=== PATIENT | male | born 1950 | race American Indian/Alaskan Native ===

== ENCOUNTER 2017-04-17 11:51 | Emergency (ER) | payer MEDICARE ==
--- NOTE | 2017-04-17 12:41 | XRay Report ---
RIGHT ANKLE, 3 views: History: Right ankle pain and swelling. There is diffuse soft tissue swelling. A comminuted fracture of the calcaneus is identified with extension to the subtalar joint. The remaining hindfoot is intact. Normal articulation of the tibiotalar joint. IMPRESSION: Comminuted calcaneus fracture.
[2017-04-17] MEDS ORDERED: PERCOCET 5/325 PO ONE (15:08)
--- NOTE | 2017-04-17 15:09 | Emergency Department Report ---
ED Lower Extremity HPI - General Chief Complaint: Extremity Injury, Lower Stated Complaint: RIGHT ANKLE PAIN Time Seen by Provider: 04/17/17 14:34 Source: patient, family Mode of arrival: Ambulatory Limitations: No Limitations - History of Present Illness Initial Comments: Patient here reports that he fell through the ceiling from his attic into his basement landed on his right foot and complained the right ankle and foot pain. He said he landed on his right foot that he fell to his left side. Denies any back or neck pain. Denies any injuries to his head. Denies any headache, blurred vision or dizziness. Patient states that his pain is 8 out of 10 only with bearing weight to his right foot. He also reports swelling to his right outer ankle. Patient did not take any medication for pain but says that he placed some ice to the site when it happened. He does have access to physician. Patient denies any loss of bowel or bladder function. Denies any pain to his buttocks. Denies any numbness or team went to extremities. Patient has history of COPD and hypertension. Surgical history of appendectomy and colon resection. Patient is allergic to aspirin. Reports pain as throbbing and achy in bed over at rest and worse with bearing. MD Complaint: ankle injury, foot injury, fall Onset/Timin -: days(s) Injury: Ankle: Right (pain and swelling), Foot: Right (Pain to rt heel) Type of Injury: other (fall) Place: home Severity: severe Severity scale (0 -10): 8 Improves With: cold therapy, immobilization, rest Worsens With: weight bearing, movement, palpation Context: fall Associated Symptoms: swelling, able to partially bear weight. denies: numbness , tingling, ambulatory Treatments Prior to Arrival: cold therapy - Related Data Previous Rx's Medication Instructions Recorded Last Taken Type Oxycodone HCl/Acetaminophen 1 each PO Q6HR PRN #15 tablet 04/17/17 Unknown Rx [Percocet 7.5/325 mg] Allergies Allergy/AdvReac Type Severity Reaction Status Date / Time aspirin AdvReac Bleeding Verified 04/17/17 12:04 ED Review of Systems ROS: Stated complaint: RIGHT ANKLE PAIN Other details as noted in HPI Comment: All other systems reviewed and negative Constitutional: no symptoms reported Respiratory: no symptoms reported Cardiovascular: denies: chest pain, palpitations, edema, syncope Gastrointestinal: denies: abdominal pain, nausea, vomiting, diarrhea Musculoskeletal: joint swelling, arthralgia. denies: back pain, myalgia Skin: denies: rash Neurological: abnormal gait (due to right ankle and foot pain and injury). denies: headache, weakness, numbness, paresthesias, confusion ED Past Medical Hx - Past Medical History Previous Medical History?: Yes Hx Hypertension: Yes Hx COPD: Yes - Surgical History Past Surgical History?: Yes Hx Appendectomy: Yes Additional Surgical History: colon resection, TA, hernia - Family History Family history: hypertension - Social History Smoking Status: Current Every Day Smoker Substance Use Type: None Other Social History: - Medications Home Medications: Home Medications Medication Instructions Recorded Confirmed Last Taken Type Oxycodone HCl/Acetaminophen 1 each PO Q6HR PRN #15 tablet 04/17/17 Unknown Rx [Percocet 7.5/325 mg] ED Physical Exam - General Limitations: No Limitations General appearance: alert, in no apparent distress - Head Head exam: Present: atraumatic, normocephalic, normal inspection - Expanded Head Exam Expanded Head exam: Absent: laceration, abrasion, contusion, hematoma, racoon eyes, soria's sign, general tenderness, tenderness of temporal artery, CSF rhinorrhea , CSF otorrhea - Eye Eye exam: Present: normal appearance, PERRL, EOMI. Absent: periorbital swelling , periorbital tenderness Pupils: Present: normal accommodation - ENT ENT exam: Present: normal exam, normal orophraynx, mucous membranes moist - Neck Neck exam: Present: normal inspection, full ROM. Absent: tenderness, meningismus, lymphadenopathy - Expanded Neck Exam Expanded Neck exam: Absent: tenderness, midline deformity, anterior neck swelling, tracheal deviation - Respiratory Respiratory exam: Present: normal lung sounds bilaterally. Absent: respiratory distress, wheezes, rales, rhonchi, stridor, chest wall tenderness - Cardiovascular Cardiovascular Exam: Present: regular rate, normal rhythm, normal heart sounds. Absent: systolic murmur, diastolic murmur - GI/Abdominal GI/Abdominal exam: Present: soft, normal bowel sounds. Absent: distended, tenderness, guarding, rebound, rigid, organomegaly, mass, bruit, pulsatile mass , hernia - Extremities Exam Extremities exam: Present: full ROM, tenderness, normal capillary refill, joint swelling, other (bilateral lower extremity with good pulses at 2+ and bounding. Good color, sensation, temperature. Left lower extremity exam is normal.). Absent: normal inspection, pedal edema, calf tenderness - Expanded Lower Extremity Exam Right Hip exam: Present: normal inspection, full ROM, pelvic stability. Absent: tenderness, swelling, abrasion, laceration, ecchymosis, deformity, crepidus, dislocation, erythema, external rotation, internal rotation, shortening Upper Leg exam: Present: normal inspection, full ROM. Absent: tenderness, swelling, abrasion, laceration, ecchymosis, deformity, crepidus, dislocation, erythema Knee exam: Present: normal inspection, full ROM, full knee extension. Absent: tenderness, swelling, abrasion, laceration, ecchymosis, deformity, crepidus, dislocation, erythema, effusion, pain w/ pronation/supination, posterior draw sign, pain/laxity with valgus, pain/laxity with varus Lower Leg exam: Present: normal inspection, full ROM. Absent: tenderness, swelling, abrasion, laceration, ecchymosis, deformity, crepidus, dislocation, erythema, palpable cord, Jane's sign Ankle exam: Present: normal inspection, full ROM, swelling (right outer ankle). Absent: tenderness, abrasion, laceration, ecchymosis, deformity, crepidus, dislocation, erythema Foot/Toe exam: Present: full ROM (patient with full active range of motion but he has pain with movement of his right foot.), tenderness (right calcaneal), swelling (right calcaneal), calcaneal tenderness. Absent: normal inspection, abrasion, laceration, ecchymosis, deformity, crepidus, dislocation, erythema, amputation, puncture wound, foreign body, tenderness at base of 5th metatarsal, nail avulsion, subungual hematoma Neuro vascular tendon exam: Present: no vascular compromise, motor deficit ( patient with active range of motion but motor deficits her right foot due to fracture), sensory deficit. Absent: pulse deficit, abnormal cap refill, tendon deficit, extremity cold to touch, pallor, abnormal 2-point discrimination, decreased fine/light touch, foot drop, peroneal nerve deficit, significant pain with passive ROM of distal joint Gait: Positive: antalgic - Back Exam Back exam: Present: normal inspection, full ROM. Absent: tenderness, CVA tenderness (R), CVA tenderness (L), muscle spasm, paraspinal tenderness, vertebral tenderness, rash noted - Expanded Back Exam Expanded Back exam: Absent: saddle anesthesia Back exam: Negative Straight Leg Raising: Left, Right - Neurological Exam Neurological exam: Present: alert, oriented X3, normal gait, reflexes normal, other (no focal neurological deficit). Absent: motor sensory deficit - Psychiatric Psychiatric exam: Present: normal affect, normal mood - Skin Skin exam: Present: warm, dry, intact, normal color. Absent: rash ED Course Vital Signs 04/17/17 11:59 Temperature 98.5 F Pulse Rate 70 Respiratory 16 Rate Blood Pressure 94/60 O2 Sat by Pulse 100 Oximetry Vital Signs 04/17/17 04/17/17 11:59 15:55 Temperature 98.5 F Pulse Rate 70 60 Respiratory 16 18 Rate Blood Pressure 94/60 Blood Pressure 105/71 [Right] O2 Sat by Pulse 100 Oximetry - Reevaluation(s) Reevaluation #1: 04/17/17 15:16 Patient given Percocet 5/325 mg 2 tablets in the emergency room. Patient with right comminuted calcaneal fracture. I spoke with Dr. Carey who is orthopedic doctor and he wants patient to have bulky foot compression dressing and walker and to follow RICE protocol 04/17/17 16:11 Status post [place] foot bulky dressing patient with good color, sensation, movement and temperature 2 toes of right foot. Patient voiced relief of pain 04/17/17 16:11 - Orthopedic Splinting/Casting Injury #1 Side: right Lower Extremity Injury Location: foot Lower Extremity Immobilizer: [place] dressing (Bulky foot compression dressing) Other Orthopedic Equipment: walker Additional Comments: Patient with comminuted right calcaneal fracture. I spoke with Dr. Carey who is orthopedic doctor and he wants patient to have bulky foot dressing and to follow up in his office tomorrow. Patient with good color, movement, temperature and sensation to toes of right foot status post [place] dressing. Patient able to demonstrate use of walker with no weightbearing to right lower extremity and foot. He tolerated procedure well. ED Lower Extremity MDM - Radiology Data Radiology results: report reviewed X-ray of right ankle 3 views revealed comminuted calcaneal fracture. There is diffuse soft tissue swelling. Fracture has extended to the soft collar joint. The remainder and hindfoot is intact. Normal articulation of the tibiotalar joint. - Medical Decision Making ED course: Patient status post fall with comminuted calcaneal fracture. Physical findings for swelling to the right ankle and tenderness to palpate right calcaneal. Walls test is negative without any Achilles tendon injury. Patient was given Percocet 5/325 mg by mouth in emergency room for pain relieved this pain. Bulky [place] dressing applied to right foot extended above ankle to mid leg area. I spoke with Dr. Cornejo regarding patient presentation, mechanism i of injury. I also spoke with Dr. Carey who is orthopedic doctor and he wants patient to have the bulky foot dressing Walker. Neurovascular checked after foot dressing placed is normal. Patient is neurologically intact and he has no abnormality in his back and denies any pain in his back. He also denies pain to his hips and buttocks. Denies any pain to his legs. He was given Percocet 5/325 2 tablets in the emergency room which relieved this pain. These refer to procedure note for splinting details. Patient and family updated on his x-ray results, diagnosis and treatment plan and they're in agreement. Patient to follow up with Dr. Carey orthopedic doctor tomorrow. They were notified to call his office in the morning after 9: 00 to schedule an appointment for same-day visits per Dr. Carey. Condition discharge home with prescription for Percocet and given instruction to avoid weight bearing to right lower extremity. Critical care attestation.: If time is entered above; I have spent that time in minutes in the direct care of this critically ill patient, excluding procedure time. ED Disposition Clinical Impression: Arthralgia of multiple sites Closed right calcaneal fracture Qualifiers: Encounter type: initial encounter Calcaneus location: unspecified portion of calcaneus Fracture alignment: displaced Qualified Code(s): S92.001A - Unspecified fracture of right calcaneus, initial encounter for closed fracture Fall as cause of accidental injury at home as place of occurrence Qualifiers: Encounter type: initial encounter Qualified Code(s): W19.XXXA - Unspecified fall, initial encounter; Y92.009 - Unspecified place in unspecified non- institutional (private) residence as the place of occurrence of the external cause Right ankle sprain Qualifiers: Encounter type: initial encounter Involved ligament of ankle: calcaneofibular ligament Qualified Code(s): S93.411A - Sprain of calcaneofibular ligament of right ankle, initial encounter Disposition: DC/TX-70 ANOTHER TYPE HLTHCARE Is pt being admited?: No Does the pt Need Aspirin: No Condition: Stable Instructions: Calcaneal Fracture (ED), Ankle Sprain (ED), RICE Therapy (ED), Fall Prevention for Older Adults (ED), Arthralgia (ED) Additional Instructions: Please follow up with primary care as recommended Increase fluid intake Take medication as prescribed . please do not drive or operate heavy machinery while taking Percocet this medication causes drowsiness Referred to discharge instruction in Rice therapy. Rice and toast. Please use walker and no weightbearing to right lower extremity follow-up with orthopedic doctor as instructed, call tomorrow after 9 AM to schedule appointment for same day visit Please avoid get in splint dressing to right foot wet Prescriptions: Oxycodone HCl/Acetaminophen [Percocet 7.5/325 mg] 1 each PO Q6HR PRN #15 tablet PRN Reason: Pain Referrals: JOSE ALEJANDRO LEWIS [Other] - 3-5 Days LEILA CAREY MD [Staff Physician] - 04/18/17 Forms: Work/School Release Form(ED), Accompanied Note
[2017-04-17 16:01] VITALS: BP 105/71
== END 2017-04-17 16:40 | disposition other institution (70) ==
LOC: ED 11:51
DX: S92.001A Unspecified fracture of right calcaneus, initial encounter for closed fracture (principal); I10 Essential (primary) hypertension; J44.9 Chronic obstructive pulmonary disease, unspecified; F17.200 Nicotine dependence, unspecified, uncomplicated; Z90.49 Acquired absence of other specified parts of digestive tract; Z88.6 Allergy status to analgesic agent; W18.39XA Other fall on same level, initial encounter; Y93.89 Activity, other specified; Y92.098 Other place in other non-institutional residence as the place of occurrence of the external cause; Y99.8 Other external cause status

== ENCOUNTER 2019-03-07 09:02 | Emergency (ER) | payer MEDICARE ==
[2019-03-07] MEDS ORDERED: NORCO 5/325 PO ONE (10:53)
--- NOTE | 2019-03-07 10:53 | Emergency Department Report ---
HPI - General Chief Complaint: Extremity Problem,Nontraumatic Time Seen by Provider: 03/07/19 10:44 ED Past Medical Hx - Past Medical History Previous Medical History?: Yes Hx Hypertension: Yes Hx COPD: Yes - Surgical History Past Surgical History?: Yes Hx Appendectomy: Yes Additional Surgical History: colon resection, TA, hernia - Social History Smoking Status: Current Every Day Smoker Substance Use Type: None - Medications Home Medications: Home Medications Medication Instructions Recorded Confirmed Last Taken Type Cyclobenzaprine [Flexeril] 10 mg PO TID PRN #10 tablet 03/07/19 Unknown Rx ED Review of Systems ROS: Stated complaint: (R) HIP PAIN Other details as noted in HPI Comment: All other systems reviewed and negative Physical Exam - Physical Exam Vital Signs: Vital Signs 03/07/19 09:21 Temperature 98 F Pulse Rate 78 Respiratory 16 Rate Blood Pressure 110/58 O2 Sat by Pulse 98 Oximetry ED Course Vital Signs 03/07/19 09:21 Temperature 98 F Pulse Rate 78 Respiratory 16 Rate Blood Pressure 110/58 O2 Sat by Pulse 98 Oximetry ED Medical Decision Making - Lab Data Result diagrams: 03/07/19 10:59 03/07/19 10:59 - Radiology Data Radiology results: report reviewed, image reviewed Critical care attestation.: If time is entered above; I have spent that time in minutes in the direct care of this critically ill patient, excluding procedure time. ED Disposition Clinical Impression: Leg pain Disposition: DC-01 TO HOME OR SELFCARE Is pt being admited?: No Does the pt Need Aspirin: No Condition: Stable Additional Instructions: ULTRASOUND- NO CLOT GOOD ARTERIAL FLOW TO LEG XRAY HIP AND LEG AND BACK NO FRACTURE ACTIVITY TOLERATED MED ORDERED DIET TOLERATED FOLLOW UP WITH ORTHO MD REFERRAL BELOW Referrals: RYLAN PELAEZ MD [Primary Care Provider] - 3-5 Days LEILA KRISHNA MD [Staff Physician] - 3-5 Days Time of Disposition: 13:18
[2019-03-07 11:18] LABS: Hematocrit 39.5 % (35.5-45.6); Mean Corpuscular Volume 98 fl (84-94); Platelet Count 224 K/mm3 (140-440); Red Blood Count 4.02 M/mm3 (3.65-5.03); Red Cell Distribution Width 14.2 % (13.2-15.2)
[2019-03-07 11:29] LABS: Hemoglobin 12.9 gm/dl (11.8-15.2); Mean Corpuscular HGB Conc 33 % (32-34)
--- NOTE | 2019-03-07 11:48 | XRay Report ---
CERVICAL SPINE, 4 VIEWS INDICATION: Cervical spine pain. COMPARISON: None. IMPRESSION: There is normal alignment from C1-C6. C7 and T1 are poorly visualized on both the latera l and swimmer's view. No gross abnormality. Severe degenerative disc disease is identified at C5-6 a nd C6-7. Mild degenerative disc disease at C4-5. The posterior elements are in appropriate relationsh ip but demonstrate mild arthritic changes. No acute osseous or soft tissue abnormality. BILATERAL HIPS 2 VIEWS WITH PELVIS INDICATION: leg pain. COMPARISON: None. IMPRESSION: Borderline bone mineralization. Mild osteoarthritic changes are identified at both hips, left greater than right. No evidence for fracture, dislocation, osteonecrosis or bone lesion. There are mild symmetric degenerative changes at the SI joints. Signer Name: Sabino Breen Jr, MD Signed: 03/07/2019 11:43 AM Workstation Name: [id number]
[2019-03-07 11:50] LABS: Alanine Aminotransferase 14 units/L (7-56); Albumin 3.5 g/dL (3.9-5); BUN/Creatinine Ratio 27; Blood Urea Nitrogen 30 mg/dL (9-20); Calcium 10.4 mg/dL (8.4-10.2); Hemolysis Index 16
--- NOTE | 2019-03-07 12:29 | XRay Report ---
XR spine lumbosacral 2-3V INDICATION / CLINICAL INFORMATION: Low back pain. COMPARISON: None available. FINDINGS: BONES/JOINT(S): No vertebral fracture. Mild right convex scoliosis of the apex at the L2-L3 level. Mi [id number] degenerative disc disease at L2-3, L3-4, L4-5, and L5-S1 with disc height loss, endpla te sclerosis, and endplate osteophyte formation. No spondylolysis or spondylolisthesis. SOFT TISSUES: Atherosclerotic calcification in the abdominal aorta. ADDITIONAL FINDINGS: None. Signer Name: Jim Moya MD Signed: 03/07/2019 12:24 PM Workstation Name: [id number]
--- NOTE | 2019-03-07 13:32 | Vascular Lab Report ---
DUPLEX DOPPLER LOWER EXTREMITY VEINS, RIGHT INDICATION: Pain in right thigh and lower leg for one week. TECHNIQUE: Duplex doppler imaging was performed through the veins of the right lower extremity using venous compression and other maneuvers. COMPARISON: No relevant prior imaging study available. FINDINGS: Right Common femoral vein: Negative. Right Superficial femoral vein: Negative. Right Popliteal vein: Negative. Right Calf veins: Negative. Additional findings: None.. IMPRESSION: No sonographic evidence for DVT in the right lower extremity. Signer Name: Sabino Breen Jr, MD Signed: 03/07/2019 1:28 PM Workstation Name: [id number]
[2019-03-07 14:20] VITALS: BP 90/52
== END 2019-03-07 14:18 | disposition home or self-care (01) ==
LOC: ED 09:02
DX: M25.551 Pain in right hip (principal); M79.651 Pain in right thigh; I10 Essential (primary) hypertension; J44.9 Chronic obstructive pulmonary disease, unspecified; F17.200 Nicotine dependence, unspecified, uncomplicated; Z90.89 Acquired absence of other organs; Z79.899 Other long term (current) drug therapy; Z88.6 Allergy status to analgesic agent
CPT/HCPCS: 36415; 72040; 72100; 73521; 80053; 85027